=== PATIENT | male | born 1975 | race Hispanic/Latino ===

== ENCOUNTER 2019-06-27 01:46 | Emergency (ER) | payer OTHER ==
[2019-06-27] MEDS ORDERED: IBUPROFEN 600 MG TABLET ONE (02:22)
[2019-06-27 02:50] LABS: APPEARANCE,URINE Clear (CLEAR); BILIRUBIN,URINE Negative (NEGATIVE); COLOR,URINE Yellow (YELLOW); GLUCOSE, URINE (UA) Negative (NEGATIVE); KETONES,URINE 15 mg/dL (NEGATIVE); LEUKOCYTE ESTERASE ,URINE Negative (NEGATIVE); NITRATE,URINE Negative (NEGATIVE); OCCULT BLOOD,URINE Small (NEGATIVE); PH,URINE 5.5 (5.0-8.0); PROTEIN,URINE Trace mg/dL (NEGATIVE)
[2019-06-27] MEDS ORDERED: TAMSULOSIN HCL 0.4 MG CAP.ER.24H ONE (02:58)
[2019-06-27 03:06] LABS: BACTERIA,URINE Few /HPF (None Seen); WBC,URINE 0-1 /HPF (0-1)
[2019-06-27 03:07] LABS: MUCUS,URINE Many LPF (None Seen)
== END 2019-06-27 03:17 ==
LOC: EDH 01:46
DX: S13.4XXA Sprain of ligaments of cervical spine, initial encounter (principal); N40.1 Benign prostatic hyperplasia with lower urinary tract symptoms; R35.0 Frequency of micturition; I10 Essential (primary) hypertension; M19.90 Unspecified osteoarthritis, unspecified site; X58.XXXA Exposure to other specified factors, initial encounter; Y93.89 Activity, other specified; Y92.89 Other specified places as the place of occurrence of the external cause; Y99.8 Other external cause status
CPT/HCPCS: 72125; 81001